=== PATIENT | male | born 1960 | race Native Hawaiian/Other Pacific Islander ===

== ENCOUNTER 2017-01-28 12:24 | Observation (INO) | payer OTHER ==
[~2017-01-28] VITALS: Ht 175.3 cm; Wt 98.6 kg
[~2017-01-28 12:24] MED LIST: ASA LO-DOSE81 MG PO; CARV12.5 PO; DIVALPROEX250 M1 PO; DIVALPROEX500 M1 PO; HYDROCHLOROT12.5 M1 PO; NORT25CA PO; PRAVACHOL20 MG PO; ZANTAC 75 PO; ZESTRIL40 MG PO
--- NOTE | 2017-01-28 17:38 | NUR ---
PT TO FLOOR @ 1515, IV 20G RT AC, IVF ON GRAVITY, PT STATED HE WAS NOT HAVING ANY PAIN, NO SOB, NO HEADACHE AT THIS TIME, DISCUSSED PT HISTORY, PT DENIES USE OF TOBACCO/ALCOHOL/RECREATIONAL DRUGS. NO C/O VOICED AT THIS TIME, NAD NOTED.
[2017-01-28 17:45] VITALS: BP 151/89; TEMP 97.7; Ht 175.3 cm; Wt 98.6 kg
[2017-01-28] MEDS ORDERED: CARV12.5 PO (18:39)
[2017-01-28] MEDS ORDERED: HYZAAR1 TA1 PO (18:41)
[2017-01-29] VITALS: BP 155/85; TEMP 97.7
[2017-01-29 04:00] VITALS: BP 123/71; TEMP 97.8
--- NOTE | 2017-01-29 04:35 | NUR ---
RESPIRATORY THERAPY AT BEDSIDE FOR EKG.
[2017-01-29 05:51] LABS: POTASSIUM 3.9 mmol/L (3.6-5.2); SODIUM 137 mmol/L (136-145)
[2017-01-29 06:33] LABS: PLATELET COUNT 187 K/uL (142-355)
[2017-01-29 08:00] VITALS: BP 140/83; TEMP 97.4
--- NOTE | 2017-01-29 11:25 | NUR ---
D/C INSTRUCTIONS GIVEN AT THIS TIME ALONG WITH NEW PRESCRIPTIONS. PT VERBALIZED UNDERSTANDING. PT D/C VIA WHEELCHAIR BY STAFF AT THIS TIME
== END 2017-01-29 11:15 | disposition home or self-care (01) ==
LOC: EDP 12:24 → MED/SURG 14:08
DX: R07.89 Other chest pain (principal); R06.02 Shortness of breath; R11.2 Nausea with vomiting, unspecified; R61 Generalized hyperhidrosis
CPT/HCPCS: 36415; 80053; 82550; 84484; 85027; 85610; 85730; 93005; 96365; 96375; 99220; 99284; G0378; J1885; J2060; J2405

== ENCOUNTER 2017-02-05 19:13 | Outpatient (CLI) | payer OTHER ==
[~2017-02-05 19:13] MED LIST changes: +HYZAAR1 TA1 PO
== END 2017-02-05 19:23 | disposition short-term general hospital (02) ==
LOC: AMB 19:13
DX: R55 Syncope and collapse (principal); R11.0 Nausea; R53.1 Weakness; Z98.61 Coronary angioplasty status
CPT/HCPCS: A0425; A0427

== ENCOUNTER 2017-02-05 19:31 | Observation (INO) | payer OTHER ==
[~2017-02-05] VITALS: Ht 175.3 cm; Wt 99.4 kg
[2017-02-05] VITALS (8 sets, daily range): BP systolic 105–134; BP diastolic 68–86; TEMP 97.6–97.8; Ht 175.3 cm; Wt 99.4 kg
[2017-02-05 20:11] LABS: POTASSIUM 3.4 mmol/L (3.6-5.2); SODIUM 134 mmol/L (136-145)
[2017-02-05 20:28] LABS: PARTIAL THROMBOPLASTIN TIME 23.3 SECONDS (24.5-33.6)
[2017-02-05 20:51] LABS: PLATELET COUNT 220 K/uL (142-355)
[2017-02-06] VITALS: BP 131/76; TEMP 97.8
[2017-02-06 04:00] VITALS: BP 108/64; TEMP 98.3
[2017-02-06 08:00] VITALS: BP 112/67; TEMP 98.8
[2017-02-06 08:51] LABS: POTASSIUM 3.9 mmol/L (3.6-5.2); SODIUM 135 mmol/L (136-145)
[2017-02-06 09:22] LABS: PLATELET COUNT 191 K/uL (142-355)
== END 2017-02-06 11:30 | disposition home or self-care (01) ==
LOC: ED 19:31 → MED/SURG 20:54
PROVIDERS: ADMIT Emergency Medicine
DX: R55 Syncope and collapse (principal); Z98.890 Other specified postprocedural states; I10 Essential (primary) hypertension; R00.1 Bradycardia, unspecified
CPT/HCPCS: 36415; 80053; 82550; 82553; 84484; 85027; 85610; 85730; 93005; 96365; 96366; 99220; 99283; G0378

== ENCOUNTER 2018-06-29 16:33 | Emergency (ER) | payer OTHER ==
[~2018-06-29] VITALS: Ht 175.3 cm; Wt 102.1 kg
[2018-06-29 16:36] VITALS: TEMP 97.9
[2018-06-29 17:50] LABS: PLATELET COUNT 203 K/uL (142-355)
[2018-06-29 17:59] LABS: POTASSIUM 4.6 mmol/L (3.6-5.2); SODIUM 138 mmol/L (136-145)
[2018-06-29 19:04] VITALS: BP 127/73
== END 2018-06-29 19:04 | disposition home or self-care (01) ==
LOC: ED 16:33
PROVIDERS: Family Medicine
DX: I16.0 Hypertensive urgency (principal); R51 Headache; S76.811A Strain of other specified muscles, fascia and tendons at thigh level, right thigh, initial encounter
CPT/HCPCS: 36415; 80053; 82550; 84484; 85027; 93005; 99283

== ENCOUNTER 2018-12-21 09:34 | Outpatient (CLI) | payer OTHER ==
[2018-12-21 09:56] LABS: PLATELET COUNT 208 K/uL (142-355)
[2018-12-21 10:08] LABS: POTASSIUM 4.4 mmol/L (3.6-5.2)
== END 2018-12-21 22:09 | disposition home or self-care (01) ==
LOC: LABW 09:34
PROVIDERS: Specialist
DX: G40.209 Localization-related (focal) (partial) symptomatic epilepsy and epileptic syndromes with complex partial seizures, not intractable, without status epilepticus (principal); D43.0 Neoplasm of uncertain behavior of brain, supratentorial
CPT/HCPCS: 36415; 80053; 85027

== ENCOUNTER 2019-04-15 08:35 | Outpatient (CLI) | payer OTHER | END 2019-04-15 22:38 | disposition home or self-care (01) | LOC: LABW 08:35 | PROVIDERS: Internal Medicine Cardiovascular Disease | DX: E78.49 Other hyperlipidemia (principal) | CPT/HCPCS: 36415; 80061 ==

== ENCOUNTER 2019-12-06 14:40 | Emergency (ER) | payer OTHER ==
[~2019-12-06] VITALS: Ht 175.3 cm; Wt 99.8 kg
[2019-12-06 15:00] LABS: PLATELET COUNT 232 K/uL (142-355)
[2019-12-06 15:09] LABS: POTASSIUM 4.4 mmol/L (3.6-5.2); SODIUM 140 mmol/L (136-145)
[2019-12-06 16:52] VITALS: BP 139/71; TEMP 98.6
== END 2019-12-06 16:53 | disposition home or self-care (01) ==
LOC: ED 14:40
PROVIDERS: Emergency Medicine Emergency Medical Services
DX: R07.89 Other chest pain (principal)
CPT/HCPCS: 36415; 80053; 84484; 85027; 93005; 96360; 99284

== ENCOUNTER 2020-01-12 10:33 | Outpatient (CLI) | payer OTHER | END 2020-01-12 23:23 | disposition home or self-care (01) | LOC: LABW 10:33 | DX: I10 Essential (primary) hypertension (principal) | CPT/HCPCS: 36415; 81000; 82024; 82043; 82088; 82533; 82570; 83835; 84155; 84244; 84436; 84443 ==

== ENCOUNTER 2020-01-27 09:10 | Outpatient (CLI) | payer OTHER | END 2020-01-27 20:57 | disposition home or self-care (01) | LOC: LABW 09:10 | PROVIDERS: ATTEND Internal Medicine | DX: R97.20 Elevated prostate specific antigen [PSA] (principal) | CPT/HCPCS: 36415; 84153 ==

== ENCOUNTER 2020-03-14 08:10 | Outpatient (CLI) | payer OTHER | END 2020-03-14 21:32 | disposition home or self-care (01) | LOC: CT 08:10 | PROVIDERS: ATTEND Internal Medicine Cardiovascular Disease | DX: I73.9 Peripheral vascular disease, unspecified (principal) | CPT/HCPCS: 36415; 82565; 84520 ==

== ENCOUNTER 2020-03-22 08:42 | Outpatient (CLI) | payer OTHER ==
[2020-03-22 09:04] LABS: PLATELET COUNT 250 K/uL (142-355)
[2020-03-22 09:41] LABS: POTASSIUM 4.5 mmol/L (3.6-5.2)
== END 2020-03-22 21:38 | disposition home or self-care (01) ==
LOC: LABW 08:42
PROVIDERS: ATTEND Internal Medicine
DX: I10 Essential (primary) hypertension (principal)
CPT/HCPCS: 36415; 80053; 81000; 82043; 82570; 83835; 84155; 84436; 84443; 85027

== ENCOUNTER 2020-05-08 09:28 | Outpatient (CLI) | payer OTHER ==
[2020-05-08 09:59] LABS: PLATELET COUNT 217 K/uL (142-355)
[2020-05-08 10:12] LABS: POTASSIUM 4.6 mmol/L (3.6-5.2)
== END 2020-05-08 19:21 | disposition home or self-care (01) ==
LOC: LABW 09:28 → MRI 10:00 → RESP 12:00 → LABW 19:21
PROVIDERS: ATTEND Specialist
DX: G40.209 Localization-related (focal) (partial) symptomatic epilepsy and epileptic syndromes with complex partial seizures, not intractable, without status epilepticus (principal); R93.2 Abnormal findings on diagnostic imaging of liver and biliary tract; R93.3 Abnormal findings on diagnostic imaging of other parts of digestive tract; R79.89 Other specified abnormal findings of blood chemistry
CPT/HCPCS: 36415; 80053; 82105; 82378; 85027; 86316; A9576

== ENCOUNTER 2020-06-07 10:17 | Day surgery (SDC) | payer OTHER ==
[~2020-06-07] VITALS: Ht 30.5 cm; Wt 0.5 kg
== END 2020-06-07 13:42 | disposition home or self-care (01) ==
LOC: OR 10:17
PROVIDERS: ATTEND Internal Medicine Gastroenterology
PROC: 0DBN8ZZ Excision of Sigmoid Colon, Via Natural or Artificial Opening Endoscopic (ICD-10-PCS; principal; 2020-06-07)
DX: D12.5 Benign neoplasm of sigmoid colon (principal); K57.30 Diverticulosis of large intestine without perforation or abscess without bleeding; K64.8 Other hemorrhoids; R93.5 Abnormal findings on diagnostic imaging of other abdominal regions, including retroperitoneum; R93.89 Abnormal findings on diagnostic imaging of other specified body structures; R93.2 Abnormal findings on diagnostic imaging of liver and biliary tract; Z20.828 Contact with and (suspected) exposure to other viral communicable diseases
CPT/HCPCS: 87635; J2704; U0003

== ENCOUNTER 2020-10-25 08:55 | Outpatient (CLI) | payer OTHER | END 2020-10-25 18:55 | disposition home or self-care (01) | LOC: LABW 08:55 | PROVIDERS: ATTEND Internal Medicine | DX: E03.8 Other specified hypothyroidism (principal) | CPT/HCPCS: 36415; 84439; 84443 ==

== ENCOUNTER 2021-02-19 08:04 | Outpatient (CLI) | payer OTHER ==
[2021-02-19 08:18] LABS: PLATELET COUNT 189 K/uL (142-355)
[2021-02-19 08:44] LABS: POTASSIUM 4.6 mmol/L (3.6-5.2)
== END 2021-02-19 18:57 | disposition home or self-care (01) ==
LOC: LABW 08:04
PROVIDERS: ATTEND Internal Medicine
DX: E03.8 Other specified hypothyroidism (principal); N18.2 Chronic kidney disease, stage 2 (mild)
CPT/HCPCS: 36415; 80069; 81000; 82043; 82306; 82570; 83970; 84439; 84443; 85027; 86140

== ENCOUNTER 2021-08-20 08:45 | Outpatient (CLI) | payer OTHER ==
[2021-08-20 09:08] LABS: PLATELET COUNT 173 K/uL (142-355)
[2021-08-20 09:33] LABS: POTASSIUM 4.2 mmol/L (3.6-5.2)
== END 2021-08-20 18:58 | disposition home or self-care (01) ==
LOC: LABW 08:45
PROVIDERS: ATTEND Internal Medicine
DX: R35.81 Nocturnal polyuria (principal); N18.2 Chronic kidney disease, stage 2 (mild); E03.8 Other specified hypothyroidism; Z79.899 Other long term (current) drug therapy
CPT/HCPCS: 36415; 80053; 81000; 82043; 82306; 82570; 83036; 83935; 83970; 84439; 84443; 85027; 86140

== ENCOUNTER 2021-11-30 13:10 | Outpatient (CLI) | payer OTHER | END 2021-11-30 22:24 | disposition home or self-care (01) | LOC: US 13:10 | PROVIDERS: ATTEND Physician Assistant | DX: I73.9 Peripheral vascular disease, unspecified (principal) ==

== ENCOUNTER 2022-01-21 09:24 | Outpatient (CLI) | payer OTHER ==
[2022-01-21 09:46] LABS: PLATELET COUNT 213 K/uL (142-355)
[2022-01-21 10:07] LABS: POTASSIUM 4.4 mmol/L (3.6-5.2)
== END 2022-01-21 19:38 | disposition home or self-care (01) ==
LOC: LABW 09:24
PROVIDERS: ATTEND Internal Medicine
DX: N18.2 Chronic kidney disease, stage 2 (mild) (principal); E03.8 Other specified hypothyroidism; R35.81 Nocturnal polyuria; Z79.899 Other long term (current) drug therapy
CPT/HCPCS: 36415; 80053; 81002; 82043; 82306; 83036; 83935; 83970; 84439; 84443; 85027; 86140

== ENCOUNTER 2022-08-14 11:38 | Outpatient (CLI) | payer OTHER ==
[2022-08-14 11:58] LABS: PLATELET COUNT 195 K/uL (142-355)
[2022-08-14 12:19] LABS: POTASSIUM 4.7 mmol/L (3.6-5.2)
== END 2022-08-14 18:56 ==
LOC: LABW 11:38
PROVIDERS: ATTEND Internal Medicine
DX: N18.2 Chronic kidney disease, stage 2 (mild) (principal); E03.8 Other specified hypothyroidism; R35.81 Nocturnal polyuria; Z79.899 Other long term (current) drug therapy; E55.9 Vitamin D deficiency, unspecified
CPT/HCPCS: 36415; 80053; 81002; 82043; 82306; 82570; 83036; 83935; 83970; 84439; 84443; 85027; 86140

== ENCOUNTER 2022-11-20 09:57 | Outpatient (CLI) | payer OTHER | END 2022-11-20 19:02 | disposition home or self-care (01) | LOC: LABW 09:57 | PROVIDERS: ATTEND Internal Medicine Cardiovascular Disease | DX: R51.9 Headache, unspecified (principal) | CPT/HCPCS: 36415; 85652 ==